=== PATIENT | male | born 1940 | race Caucasian/White ===

== ENCOUNTER 2018-02-09 06:52 | Emergency (ER) | payer MEDICARE ==
[2018-02-09 07:00] LABS: Glucose,Whole Blood 111 mg/dL (75-99)
[2018-02-09] MEDS ORDERED: DIPH,PERTUS(ACELL)TETVAC-LF 0.5 ML VIAL IM ONE (07:44)
--- NOTE | 2018-02-09 07:47 | ED ---
General Adult HPI - General Chief complaint: Head Injury Stated complaint: Fall Time Seen by Provider: 02/09/18 07:06 Source: patient, EMS, RN notes reviewed, old records reviewed Mode of arrival: EMS Limitations: no limitations - History of Present Illness Initial comments: 77-year-old male presents from home status post fall. Patient states he was standing up in the morning, lost his balance and fell striking his head on a dresser. There was no loss consciousness. He did strike the right side of his forehead. There was significant bleeding according EMS. Patient is on Plavix. He has history of previous CVA and baseline dementia. Patient has some baseline dysarthria according to his son. Patient has no pain complaints time my evaluation. No chest pain or abdominal pain. No extremity pain. He was ambulatory after the fall. Only complaint is head injury and laceration. - Related Data Home Medications Medication Instructions Recorded Confirmed Aspirin [Adult Low Dose Aspirin EC] 81 mg PO DAILY 02/09/18 02/09/18 Atorvastatin [Lipitor] 80 mg PO DAILY 02/09/18 02/09/18 Carvedilol [Coreg] 6.25 mg PO BID 02/09/18 02/09/18 Clopidogrel [Plavix] 75 mg PO DAILY 02/09/18 02/09/18 Losartan Potassium [Cozaar] 25 mg PO DAILY 02/09/18 02/09/18 amLODIPine [Norvasc] 5 mg PO DAILY 02/09/18 02/09/18 hydrALAZINE HCL 25 mg PO BID 02/09/18 02/09/18 Allergies Allergy/AdvReac Type Severity Reaction Status Date / Time No Known Allergies Allergy Verified 02/09/18 07:04 Review of Systems ROS Statement: Those systems with pertinent positive or pertinent negative responses have been documented in the HPI. ROS Other: All systems not noted in ROS Statement are negative. Past Medical History Past Medical History: CVA/TIA, Hyperlipidemia, Hypertension History of Any Multi-Drug Resistant Organisms: None Reported Past Surgical History: No Surgical Hx Reported Past Psychological History: No Psychological Hx Reported Smoking Status: Never smoker Past Alcohol Use History: None Reported Past Drug Use History: None Reported General Exam Limitations: no limitations General appearance: alert, in no apparent distress Head exam: Present: normocephalic, other Eye exam: Present: normal appearance, PERRL, EOMI ENT exam: Present: normal exam Neck exam: Present: normal inspection. Absent: tenderness, meningismus Respiratory exam: Present: normal lung sounds bilaterally. Absent: respiratory distress, wheezes Cardiovascular Exam: Present: regular rate, normal rhythm GI/Abdominal exam: Present: soft. Absent: distended, tenderness Extremities exam: Present: normal inspection, normal capillary refill. Absent: pedal edema Neurological exam: Present: alert, oriented X3, CN II-XII intact, motor sensory deficit (Dysarthria, all 4 extremities 5 out of 5 strength) Skin exam: Present: warm, dry Course Vital Signs 02/09/18 02/09/18 02/09/18 06:54 08:16 08:43 Temperature 97.9 F Pulse Rate 72 65 68 Respiratory 20 18 18 Rate Blood Pressure 191/81 185/77 O2 Sat by Pulse 96 98 98 Oximetry Procedures - Laceration Laceration #1 Consent Obtained: verbal consent Time Out Performed: Yes Indication: laceration Site: face Size (cm): 4 Description: linear Depth: simple, single layer Anesthetic Used: lidocaine 1% Anesthesia Technique: local infiltration Amount (mls): 7 Pre-repair: wound explored, irrigated extensively, deep structures intact Type of Sutures: nylon Size of Sutures: 5-0 Number of Sutures: 7 Technique: simple, interrupted Patient Tolerated Procedure: well Medical Decision Making - Medical Decision Making 77-year-old male with head injury and facial laceration. Laceration is repaired with nylon suture. Given the depth of laceration, is recommended that the patient had sutures removed in approximately 10 days. Patient's family will observe for signs of infection. Laceration is above the right eye including portion of the eyebrow. Approximately 4 cm in length. Extraocular motions are intact. There is no suspected globe injury. CT the head is obtained and this is negative for intracranial hemorrhage, CT of C-spine is negative for fracture subluxation. Given that the patient is on Plavix with this, head injury, family will observe for signs of deteriorating mental status and concern for intracranial hemorrhage. Patient's blood pressure is elevated in the emergency department however he did not take his morning antihypertensive medications which include Coreg, losartan , hydralazine, and Norvasc. These medications are given. - Lab Data Lab Results 02/09/18 Range/Units 06:59 POC Glucose (mg/dL) 111 H (75-99) mg/dL POC Glu Credit Verifier ID Blossom Bermudez Disposition Clinical Impression: Closed head injury, Facial laceration Disposition: HOME SELF-CARE Condition: Fair Instructions: Care For Your Stitches (ED), Laceration (ED), Concussion (ED) Is patient prescribed a controlled substance at d/c from ED?: No Referrals: Campos Saldaña DO [Primary Care Provider] - 1-2 days Time of Disposition: 09:29
[2018-02-09] MEDS ORDERED: LIDOCAINE 1% INJ 10MG/ML (20 ML MDV) SQ ONE (07:56)
[2018-02-09 08:16] VITALS: RESP 18
[2018-02-09] MEDS ORDERED: hydrALAZINE HCL 25 MG TAB PO STA (08:29)
[2018-02-09] MEDS ORDERED: LOSARTAN 25 MG TAB PO STA (08:29)
[2018-02-09] MEDS ORDERED: CARVEDILOL 6.25 MG TAB PO STA (08:29)
[2018-02-09] MEDS ORDERED: amLODIPine 5 MG TAB PO STA (08:29)
[2018-02-09 08:44] VITALS: PULSE 68
--- NOTE | 2018-02-09 09:27 | CT ---
EXAMINATION TYPE: CT brain murphy bae DATE OF EXAM: 02/09/2018 COMPARISON: NONE HISTORY: Fall CT DLP: 1526.70 mGycm Automated exposure control for dose reduction was used. TECHNIQUE: CT scan of the head and cervical spine are performed without contrast. Scan was performed prior to the time in which should started. Apparently the dictation was lost by the original interpre ter and is now presented to me at 9:19 AM. FINDINGS: There is moderate to severe generalized degenerative change. Motion artifact limits the e xam. No obvious intracranial hemorrhage or mass effect. Low attenuation within the white matter is no nspecific but most typical remote microvascular ischemia. There is diffuse soft tissue edema right or bit and frontal bone. Correlate for soft tissue injury. Calvarium intact.. The spinal canal is nondiagnostic due to artifact and lack of contrast. There is severe multilevel de generative disc disease with hypertrophic spurring and facet arthropathy. 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 Multilevel foraminal encroachment noted. IMPRESSION: 1. There is no acute fracture or dislocation evident in the cervical spine. Multilevel degenerative d isc disease and foraminal encroachment correlate with short-term follow-up. 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 2. No acute intracranial hemorrhage, mass effect, or midline shift is seen. Degenerative and nonspeci fic white matter changes most typical remote microvascular ischemia.
[2018-02-09 09:52] VITALS: BP 172/92; TEMP 97.2
== END 2018-02-09 09:52 | disposition home or self-care (01) ==
LOC: EC 06:52
DX: S01.81XA Laceration without foreign body of other part of head, initial encounter (principal); S01.111A Laceration without foreign body of right eyelid and periocular area, initial encounter; E78.5 Hyperlipidemia, unspecified; I10 Essential (primary) hypertension; Z23 Encounter for immunization; Z86.73 Personal history of transient ischemic attack (TIA), and cerebral infarction without residual deficits; Z79.02 Long term (current) use of antithrombotics/antiplatelets; Z79.82 Long term (current) use of aspirin; Z79.899 Other long term (current) drug therapy; W01.190A Fall on same level from slipping, tripping and stumbling with subsequent striking against furniture, initial encounter; Y92.009 Unspecified place in unspecified non-institutional (private) residence as the place of occurrence of the external cause
CPT/HCPCS: 36415; 72125; 70450; 90715; 99284; 12013; 90471; J2001